=== PATIENT | male | born 1965 | race Caucasian/White ===

== ENCOUNTER 2020-10-27 12:08 | Emergency (ER) | payer OTHER ==
[~2020-10-27] VITALS: Ht 172.7 cm; Wt 104.3 kg
[2020-10-27] MEDS ORDERED: PRILOSEC10 MG PO (12:19)
[2020-10-27] MEDS ORDERED: KAPSPARGO SPRI100 MG PO (12:19)
[2020-10-27] MEDS ORDERED: LISINOPRIL10 MG PO (12:19)
[2020-10-27] MEDS ORDERED: LIPITOR40 MG PO (12:19)
[2020-10-27] MEDS ORDERED: FLOMAX0.4 MG PO (12:20)
[2020-10-27 12:52] LABS: ABSOLUTE BASOPHILS 0.1 thou/uL (0.0-0.2); ABSOLUTE EOSINOPHILS 0.2 thou/uL (0.0-0.7); ABSOLUTE LYMPHOCYTES 1.6 thou/uL (0.8-5.3); ABSOLUTE MONOCYTES 0.7 thou/uL (0.0-1.2); ABSOLUTE NEUTROPHILS 3.8 thou/uL (1.6-8.1); BASOPHILS 1.2 %; EOSINOPHILS 2.4 %; HEMOGLOBIN 14.1 gm/dL (14.0-18.0); LYMPHOCYTES 25.6 %; MCH 29.5 pg (26.0-34.0); MCHC 34.4 g/dL (28.0-37.0); MCV 85.6 fL (80.0-100.0); MONOCYTES 10.7 %; MPV 8.1 fl. (7.2-11.1); NUCLEATED RBCS 0 /100WBC; PLATELET COUNT* 191 thou/uL (150-400); POLYS 60.1 %; RDW-CV 13.4 % (10.5-14.5); WBC 6.3 thou/uL (4.0-11.0)
[2020-10-27 13:02] LABS: CALCIUM 9.1 mg/dL (8.5-10.1); CREATININE 0.9 mg/dL (0.6-1.3); POTASSIUM 3.2 mmol/L (3.5-5.1)
[2020-10-27 13:06] LABS: ALBUMIN 3.8 g/dL (3.4-5.0); TOTAL BILIRUBIN 0.6 mg/dL (<0.1-1.0); TOTAL PROTEIN 7.5 g/dL (6.4-8.2)
[2020-10-27 13:38] LABS: URINE BILIRUBIN NEGATIVE (Negative); URINE BLOOD NEGATIVE (Negative); URINE CLARITY CLEAR; URINE COLOR YELLOW; URINE GLUCOSE-RANDOM NEGATIVE (Negative); URINE KETONES NEGATIVE (Negative); URINE LEUKOCYTES-REFLEX NEGATIVE (Negative); URINE NITRITE-REFLEX NEGATIVE (Negative); URINE PROTEIN NEGATIVE (Negative); URINE SPECIFIC GRAVITY 1.015 (1.005-1.030); URINE UROBILINOGEN 0.2 E.U./dl (0.2-1.0)
--- NOTE | 2020-10-27 15:53 | EKG ---
[place] [address] ELECTROCARDIOGRAM REPORT Name: DEBBIE MONTERO Room: [facility]#: [id number] Admission: 10/27/20 Attend Phys: Discharge: Date of : 63 Date of Service: 10/27/20 1245 Report #: [id number] THIS REPORT FOR: //name// [facility] ED Test Date: 2020-10-27 Test Time: 12:45:26 Pat Name: DEBBIE MONTERO Department: Room: Gender: [employer]: [facility] : 1965 Requested By: Franklin Ballard Order Number: [id number] MD: Rodrigo Breen Measurements Intervals [place] Rate: 56 P: 58 NM: 191 QRS: 21 QRSD: 87 T: 77 QT: 433 QTc: 418 Interpretive Statements Sinus rhythm Borderline low voltage, extremity leads No previous ECG available for comparison Electronically Signed On 10-27-2020 15:52:46 CDT by Rodrigo Breen [email or web address] <ELECTRONICALLY SIGNED> By: Rodrigo Breen MD, [facility] 10/27/20 1552 1245 1245 Rodrigo Breen MD, FACC /EPI
[2020-10-27 16:03] VITALS: BP 175/97
== END 2020-10-27 16:04 | disposition home or self-care (01) ==
LOC: M.ERS 12:08
PROVIDERS: Physician Assistant
DX: I10 Essential (primary) hypertension (principal); E78.00 Pure hypercholesterolemia, unspecified; K21.9 Gastro-esophageal reflux disease without esophagitis; Z79.899 Other long term (current) drug therapy; Z91.018 Allergy to other foods; Z88.0 Allergy status to penicillin